=== PATIENT | male | born 1980 | race Two or more races ===

== ENCOUNTER 2018-12-22 21:48 | Emergency (ER) | payer SELFPAY ==
--- NOTE | 2018-12-22 22:00 | EDM.PDOC ---
ED HPI GENERAL MEDICAL PROBLEM - General Chief Complaint: Lower Extremity Injury/Pain Stated Complaint: SPOKE TO NURSE Time Seen by Provider: 12/22/18 21:59 Source of Information: Reports: Patient - History of Present Illness INITIAL COMMENTS - FREE TEXT/NARRATIVE: HISTORY AND PHYSICAL: History of present illness: [Patient presents with right knee pain, he is playing soccer today at a [employer] the exact mechanism of injury is unclear however patient refuses to lift his leg forward while walking the states it is unstable refers to move backwards and draped his leg No other injury no fever nausea vomiting diarrhea constipation chest pain shortness breath headache dizziness palpitation no bowel or urine symptoms gview of systems: As per history of present illness and below otherwise all systems reviewed and negative. Past medical history: As per history of present illness and as reviewed below otherwise noncontributory. Surgical history: As per history of present illness and as reviewed below otherwise noncontributory. Social history: No reported history of drug or alcohol abuse. Family history: As per history of present illness and as reviewed below otherwise noncontributory. Physical exam: HEENT: Atraumatic, normocephalic, pupils reactive, negative for conjunctival pallor or scleral icterus, mucous membranes moist, throat clear, neck supple, nontender, trachea midline. Lungs: Clear to auscultation, breath sounds equal bilaterally, chest nontender. Heart: S1S2, regular, negative for clicks, rubs, or JVD. Abdomen: Soft, nondistended, nontender. Negative for masses or hepatosplenomegaly. Negative for costovertebral tenderness. Pelvis: Stable nontender. Genitourinary: Deferred. Rectal: Deferred. Extremities: Atraumatic, negative for cords or calf pain. Neurovascular unremarkable. Lower extremity hip and ankle and affected patella is lax and freely mobile on exam and seems displaced proximally consistent with a palpable patellar tendon rupture ligament structures appear intact vascularly intact Neuro: Awake, alert, oriented. Cranial nerves II through XII unremarkable. Cerebellum unremarkable. Motor and sensory unremarkable throughout. Exam nonfocal. Diagnostics: [Right knee 3 views] Therapeutics: [ mobilizer crutches nonweightbearing Lakeisha did discuss patient with Dr. Ybarra orthopedist sap security consultant, she will see the patient at 9 AM tomorrow morning in the clinic ] Impression: [ right knee injury Clinical suspicion for ight patellar tendon rupture ] Definitive disposition and diagnosis as appropriate pending reevaluation and review of above. right knee Pain Score (Numeric/FACES): 4 - Related Data Allergies Allergy/AdvReac Type Severity Reaction Status Date / Time No Known Allergies Allergy Verified 12/22/18 21:52 Home Meds: Home Meds . [No Known Home Meds] 12/22/18 [History] Past Medical History - Past Health History Medical/Surgical History: Denies Medical/Surgical History - Infectious Disease History Infectious Disease History: Reports: None Social & Family History - Family History Family Medical History: Noncontributory - Tobacco Use Smoking Status *Q: Never Smoker - Recreational Drug Use Recreational Drug Use: No Review of Systems - Review of Systems Review Of Systems: See Below ED EXAM, GENERAL - Physical Exam Exam: See Below Course - Vital Signs Last Recorded V/S: Last Vital Signs Temp 97.9 F 12/22/18 21:53 Pulse 73 12/22/18 21:53 Resp 16 12/22/18 21:53 BP 125/89 12/22/18 21:53 Pulse Ox 96 12/22/18 21:53 Departure - Departure Time of Disposition: 22:53 Disposition: Home, Self-Care 01 Condition: Good Clinical Impression: Patellar tendon rupture, Right knee injury - Discharge Information Forms: ED Department Discharge Additional Instructions: Immobilizer crutches nonweightbearing No food after midnight I have discussed her case with orthopedic surgeon sap security consultant Dr. Britni Nichols , she is expectin and recommending your follow-up with her at 9 AM in the morning at her clinic for further evaluation and treatment Medication as prescribed [facility] [address], [address] [place] [address] my orthopedic The following information is given to patients seen in the emergency department who are being discharged to home. This information is to outline your options for follow-up care. We provide all patients seen in our emergency department with a follow-up referral. The need for follow-up, as well as the timing and circumstances, are variable depending upon the specifics of your emergency department visit. If you don't have a primary care physician on staff, we will provide you with a referral. We always advise you to contact your personal physician following an emergency department visit to inform them of the circumstance of the visit and for follow-up with them and/or the need for any referrals to a consulting specialist. The emergency department will also refer you to a specialist when appropriate. This referral assures that you have the opportunity for follow-up care with a specialist. All of these measure are taken in an effort to provide you with optimal care, which includes your follow-up. Under all circumstances we always encourage you to contact your private physician who remains a resource for coordinating your care. When calling for follow-up care, please make the office aware that this follow-up is from your recent emergency room visit. If for any reason you are refused follow-up, please contact the [facility] emergency department at and asked to speak to the emergency department charge nurse.
--- NOTE | 2018-12-22 22:47 | CR ---
INDICATION: sports injury TECHNIQUE: Right knee 2 views. COMPARISON: None. FINDINGS: Bones: Alignment is normal. No fractures or bone lesions. Joint spaces: Unremarkable. Soft tissues: Unremarkable. IMPRESSION: Unremarkable right knee. Dictated by: Best Kaiser MD @ 12/22/2018 22:45:43 (Electronically Signed)
== END 2018-12-22 23:09 | disposition home or self-care (01) ==
LOC: MW.ED 21:48
DX: S76.111A Strain of right quadriceps muscle, fascia and tendon, initial encounter (principal); X58.XXXA Exposure to other specified factors, initial encounter; Y93.66 Activity, soccer
CPT/HCPCS: 73560-26-RT; 73560-RT; 99282; 99283-25

== ENCOUNTER 2018-12-24 06:44 | Day surgery (SDC) | payer SELFPAY ==
[~2018-12-24 06:44] MED LIST: Lactated Ringers 1,000 ML IV SCH
[2018-12-24] MEDS ORDERED: Propofol 200 MG/20 ML SDV ONE (07:03)
[2018-12-24] MEDS ORDERED: fentaNYL 250 MCG/5 ML SDV ONE (07:04)
[2018-12-24] MEDS ORDERED: Midazolam 1 MG/ML 2 ML SDV ONE (07:04)
[2018-12-24] MEDS ORDERED: Dexamethasone 4 MG/ML 5 ML MDV ONE (07:06)
[2018-12-24] MEDS ORDERED: Ondansetron 4 MG/2 ML SDV ONE (07:06)
[2018-12-24] MEDS ORDERED: ceFAZolin/Dextrose,Iso-Osmotic 2 GM/50 ML Duplex Bag IV ONE (07:07)
[2018-12-24] MEDS ORDERED: Lidocaine 1% 20 ML MDV ONE (07:21)
--- NOTE | 2018-12-24 07:41 | PCM.PREANE ---
Preanesthetic Assessment - Anesthesia/Transfusion/Family Hx Anesthesia History: No Prior Anesthesia Family History of Anesthesia Reaction: No Transfusion History: No Prior Transfusion(s) - Review of Systems General: No Symptoms Pulmonary: No Symptoms Cardiovascular: No Symptoms Gastrointestinal: No Symptoms Neurological: No Symptoms Other: Reports: None - Physical Assessment NPO Status Date: 12/23/18 NPO Status Time: 22:00 O2 Sat by Pulse Oximetry: 94 Respiratory Rate: 15 Vital Signs: Last Vital Signs Temp 96.1 F 12/24/18 07:20 Pulse 65 12/24/18 07:20 Resp 15 12/24/18 07:20 BP 120/72 12/24/18 07:20 Pulse Ox 94 L 12/24/18 07:20 Height: 5 ft 7 in Weight: 83.007 kg ASA Class: 1 Mental Status: Alert & Oriented x3 Airway Class: Mallampati = 1 Dentition: Reports: Normal Dentition, Broken Tooth/Teeth (chipped) ROM/Head Extension: Full Lungs: Clear to Auscultation, Normal Respiratory Effort Cardiovascular: Regular Rate, Regular Rhythm - Allergies Allergies/Adverse Reactions: Allergies Allergy/AdvReac Type Severity Reaction Status Date / Time No Known Allergies Allergy Verified 12/23/18 13:42 - Blood Blood Available: No - Anesthesia Plan Pre-Op Medication Ordered: None - Acknowledgements Anesthesia Type Planned: General Anesthesia Pt an Appropriate Candidate for the Planned Anesthesia: Yes Alternatives and Risks of Anesthesia Discussed w Pt/Guardian: Yes Pt/Guardian Understands and Agrees with Anesthesia Plan: Yes PreAnesthesia Questionnaire - Past Health History Medical/Surgical History: Denies Medical/Surgical History - Infectious Disease History Infectious Disease History: Reports: None - Past Surgical History Head Surgeries/Procedures: Reports: None - SUBSTANCE USE Smoking Status *Q: Never Smoker Recreational Drug Use History: No - HOME MEDS Home Medications: Home Meds Hydrocodone/Acetaminophen [Hydrocodon-Acetaminophen 5-325] 1 tab PO ASDIRECTED PRN 12/23/18 [History] Multivitamin [Multivitamins] 1 tab PO DAILY 12/23/18 [History] - CURRENT (IN HOUSE) MEDS Current Meds: Current Medications Hydrocodone Bitart/Acetaminophen (Lucas 325-5 Mg) 1 - 2 tab PO Q4H PRN PRN Reason: Pain Cefazolin Sodium/Dextrose 2 gm (/ Premix) 50 mls @ 100 mls/hr IV ONCALL [facility] Lactated Ringer's (Ringers, Lactated) 1,000 mls @ 100 mls/hr IV ASDIRECTED [facility] Last Admin: 12/24/18 07:37 Dose: 100 mls/hr Discontinued Medications Cefazolin Sodium/Dextrose (Ancef) Confirm Administered Dose 2 gm IV .STK-MED ONE Stop: 12/24/18 07:08 Dexamethasone (Dexamethasone) Confirm Administered Dose 20 mg .ROUTE .STK-MED ONE Stop: 12/24/18 07:07 Fentanyl (Sublimaze) Confirm Administered Dose 250 mcg .ROUTE .STK-MED ONE Stop: 12/24/18 07:05 Lidocaine HCl (Xylocaine-Mpf 1%) Confirm Administered Dose 5 mls @ as directed .ROUTE .STK-MED ONE Stop: 12/24/18 07:06 Lidocaine HCl (Xylocaine 1%) Confirm Administered Dose 20 ml .ROUTE .STK-MED ONE Stop: 12/24/18 07:22 Midazolam HCl (Versed 1 Mg/Ml) Confirm Administered Dose 2 mg .ROUTE .STK-MED ONE Stop: 12/24/18 07:05 Ondansetron HCl (Zofran) Confirm Administered Dose 4 mg .ROUTE .STK-MED ONE Stop: 12/24/18 07:07 Propofol (Diprivan 20 Ml) Confirm Administered Dose 200 mg .ROUTE .STK-MED ONE Stop: 12/24/18 07:04
[2018-12-24] MEDS ORDERED: Acetaminophen/HYDROcodone 325-5 MG Tab PO PRN (08:00)
[2018-12-24] MEDS ORDERED: ceFAZolin 2 GM in Premix Bag 1 BAG IV SCH (08:00)
[2018-12-24] MEDS ORDERED: ePHEDrine 50 MG/ML SDV ONE (08:36)
[2018-12-24] MEDS ORDERED: Phenylephrine/Normal Saline 100 MCG/ML 10 ML Syringe ONE (08:50)
[2018-12-24] MEDS ORDERED: fentaNYL 100 MCG/2 ML SDV IVPUSH PRN (08:57)
[2018-12-24] MEDS ORDERED: Ketorolac 30 MG/ML SDV ONE (09:17)
--- NOTE | 2018-12-24 10:20 | PCM.OPNOTE ---
- General Post-Op/Procedure Note Date of Surgery/Procedure: 12/24/18 Operative Procedure(s): open repair R patella tendon Post-Op Diagnosis: R patella tendon rupture Anesthesia Technique: General ET Tube Primary Surgeon: Britni Nichols Mailing Specialist: Britt Bermeo in mLs: 10 Condition: Good Free Text/Narrative:: #[id number]
--- NOTE | 2018-12-24 12:01 | PCM.POSTAN ---
POST ANESTHESIA ASSESSMENT - MENTAL STATUS Mental Status: Alert, Oriented - RESPIRATORY Respiratory Status: Respiratory Rate WNL, Airway Patent, O2 Saturation Stable - CARDIOVASCULAR CV Status: Pulse Rate WNL, Blood Pressure Stable - GASTROINTESTINAL GI Status: No Symptoms - POST OP HYDRATION Hydration Status: Adequate & Stable
--- NOTE | 2018-12-24 12:08 | PCM48HPAN ---
Post Anesthesia Note - EVALUATION WITHIN 48HRS OF ANESTHETIC Vital Signs in Normal Range: Yes Patient Participated in Evaluation: Yes Respiratory Function Stable: Yes Airway Patent: Yes Cardiovascular Function Stable: Yes Hydration Status Stable: Yes Pain Control Satisfactory: Yes Nausea and Vomiting Control Satisfactory: Yes Mental Status Recovered: Yes Resp Rate: 12
--- NOTE | 2018-12-24 16:04 | CR ---
EXAMINATION: Right knee HISTORY: Patellar tendon repair COMPARISON: 12/23/2018 TECHNIQUE: 4 fluoroscopic images provided. FINDINGS/IMPRESSION: Postsurgical changes are noted overlying the soft tissues of the suprapatellar region. Underlying osseous structures are intact.
--- NOTE | 2018-12-24 16:15 | OR ---
SURGEON: Britni Nichols MD DATE OF PROCEDURE: 12/24/2018 PREOPERATIVE DIAGNOSIS: Right patellar tendon rupture. POSTOPERATIVE DIAGNOSIS: Right patellar tendon rupture. PROCEDURE: Open repair, right patellar tendon. EMISSION SPECIALIST: SUDHA Russ. ANESTHESIA: General. ESTIMATED BLOOD LOSS: 10 mL. TOURNIQUET TIME: See nursing record. COMPLICATIONS: None. DVT PROPHYLAXIS: PAS boot to the nonoperative leg. IMPLANTS USED: Three 5.5 mm Quattro suture anchor (biocomposite) from [facility]. BRIEF HISTORY: Jemima is a 38-year-old male, who injured his right knee while playing soccer two days ago. He was initially evaluated in the emergency room. He did undergo an MRI which did confirm a tear of the patellar tendon. At that time, I recommended surgical treatment. The risks and goals of procedure were discussed with the patient and were documented preoperatively. He agreed to proceed. DESCRIPTION OF PROCEDURE: The patient was properly identified and brought to the operating room. He was transferred from the OR cart and placed on the operating room table in supine position. General anesthesia was administered. After adequate anesthesia was obtained, a well-padded tourniquet was applied to the right lower extremity. The right lower extremity was then prepped in standard fashion using ChloraPrep solution. It was then sterilely draped. A time-out was performed to ensure correct site and procedure. Preoperative antibiotics were given. The surgical site had been marked preoperatively. C-arm imaging was used to obtain a lateral of the contralateral knee. This was used to compare the length of the patellar tendon. The image was saved. An Esmarch was then used to exsanguinate the right lower extremity and the tourniquet was inflated to 250 mmHg. An incision was made over the anterior aspect of the knee extending from the inferior pole of the patella to the tibial tubercle. Subcutaneous tissues were incised. Electrocautery was used to maintain hemostasis. The rent in the patellar tendon was then identified and the joint was suctioned as there was a large hemarthrosis. The edges of the patellar tendon tear were then identified. He had a small portion of the anterior fibers still attached to the inferior pole of the patella. The remainder of the patellar tendon had pulled away. The patellar tendon ends were quite frayed. The attachment to the tibial tubercle was intact. The knee joint was then copiously irrigated with Pulsavac branding machine operator. The inferior pole of the patella was then identified. The soft tissue was debrided and the bone was identified. Three 5.5 mm biocomposite suture anchors were placed approximately 2 mm anterior to the articular surface. These were placed without difficulty and had good purchase into the bone. The limbs of the suture anchors were double loaded. One limb was passed into the inferior portion of the patellar tendon using a modified Krackow type stitch. One limb from each anchor was placed in this fashion into the inferior patellar tendon. The tendon was then tied to the anchor and the tendon end was reapproximated to the prepared bony bed. Following this, the knee was taken through a range of motion. I was able to get him to nearly 70 degrees on the operating room table. C-arm imaging was used to try to obtain a similar view of the right knee as we had done with the contralateral knee. The distance from the inferior patella to the tibial tubercle appeared to be similar. The remaining portion of the proximal tendon which remained attached to the patella was then attached to the underlying repaired tendon with the remaining FiberWire suture limbs from the suture anchors. 0 Vicryl was used to tack the remaining tendon over the repair. The wound was then copiously irrigated with saline solution. The retinaculum was closed both medially and laterally with 0 Vicryl. Care was taken to get good coverage with soft tissue over the patellar tendon repair. The tourniquet was then deflated. No excess bleeding was noted. The subcutaneous tissues were closed with 2-0 Vicryl and the skin was closed with pratibha. Xeroform gauze was placed over the wound and a bulky dressing was applied. He was placed back into a knee immobilizer. He was awakened from his anesthetic and transferred back to the operating room cart. He was brought to recovery room in stable condition. All needle and sponge counts were correct. ANTHONY / JIMBO /[id number]
== END 2018-12-24 12:55 | disposition home or self-care (01) ==
LOC: MW.SDS 06:44
PROVIDERS: ATTEND Orthopaedic Surgery
DX: S76.111A Strain of right quadriceps muscle, fascia and tendon, initial encounter (principal); X58.XXXA Exposure to other specified factors, initial encounter; Y93.66 Activity, soccer; Z79.899 Other long term (current) drug therapy
CPT/HCPCS: 27380; 76000; A9270; J0131; J0690; J1100; J1885; J2001; J2250; J2370; J2405; J2704; J3010; J7120; 01320